=== PATIENT | female | born 1970 | race African-American/Black ===

== ENCOUNTER → 2016-06-23 | Outpatient (CLI) | payer MEDICAID ==
[~2016-06-23] MED LIST: ALBUTEROL200 PUFFS/ IH; AMOXICILLIN 50500 MG PO; AMOXIL500 MG PO; ATORVASTATIN CA10 M1 PO; AUGMENTIN XR 101 TER PO; BACTRIM DS 8001 TA1 PO; BENTYL20 MG OR; BIAXIN 500MG T500 MG PO; CHEWABLE ASPIRI81 MG PO; CIPRO 500MG TA500 MG PO; CIPROFLOXACIN 0.3% OP; DARVOCET-N 1001 EACH PO; DICLOFENAC 50MG50 MG PO; DIFLUCAN150 MG PO; EC NAPROSYN500 MG PO; FIORICET 325 MG1 TAB PO; FLAGYL500 MG PO; FLEXERIL10 M1 PO; FLEXERIL10 MG PO; HYDROCHLOROTHIA25 M1 OR; HYDROCHLOROTHIA25 M1 PO; HYDROCODONE1 TABLET PO; IBU800 M1 PO; IMODIUM A-1 MG/7.5 M PO; KETOROLAC10 MG PO; LASIX 20MG. TAB20 MG; LORTAB 5/500 501 TAB PO; MEDROL 4MG. DOSE4 MG PO; MELOXICAM15 MG PO; METHOCARBAMOL500 MG; METHOCARBAMOL750 MG PO; MUCINEX D 12001 TER PO; NAPROSYN 500MG500 MG PO; NAPROXEN EC500 MG PO; PERCODAN TABLE1 EACH PO; PHENERGAN 25MG.25 M1 PO; PREDNISONE 20MG20 MG PO; PROPRANOLOL HCL40 MG OR; PROPRANOLOL HCL40 MG PO; SULFAMETHOXAZOL1 TA6 PO; TESSALON PERLE100 MG PO; THIORIDAZINE HC50 MG OR; TRAMADOL 50MG T50 M1 PO; TRAMADOL 50MG T50 MG PO; ULTRACET 325 MG1 TAB PO; ULTRAM 50 MG TA50 MG PO; VERAPAMIL HYDR120 MG PO; VIBRAMYCIN 100100 MG PO; VICODIN 5/500 T1 TAB PO; VOLTAREN75 M1 PO; VOLTAREN75 MG PO; ZOFRAN ODT4 MG PO; ZOLPIDEM 10MG T10 MG PO
--- NOTE | 2016-06-29 05:44 | RADIOLOGY REPORT PS360 ---
MRI-LOW EXT ANY JOINT W/O-RT HISTORY: . OCD LESION, STRESS FX Pain and swelling medial and lateral. Previous surgery ORDERING PHYSICIAN: KENY Whitmore PATIENT AGE: 45 years COMPARISON: 12/03/2014 MRI TECHNIQUE: Standard multiplanar multiecho sequences are performed without contrast. FINDINGS: There remains 3 Areas of abnormal bone signal intensity as previously described. There is diffuse subcutaneous edema about the ankle joint both medial and lateral The most prominent region is along the medial aspect of the distal tibia at the base of the medial malleolus and medial aspect of the distal tibia as well as the subarticular region of the distal tibia at the ankle joint. This area measures 2 x 1.9 cm. Somewhat heterogeneous in nature. An 8 mm more focal area of decreased T1 and increased T2 signal present along the lateral margin of this region in the subarticular area of the ankle joint. This was present previously. The bone marrow edema is more prominent along the medial malleolus are area. The focal abnormality is not significantly changed. Osteochondritis dissecans with subchondral cystic changes and bone marrow edema considered. There remains a small area of osteochondrosis involving the lateral aspect of the talar dome measuring approximately 6 mm previously measuring 8 x 8 mm. This is hypointense on T1 and hyperintense on T2 with some minimal subcortical cystic change. The previously noted altered signal intensity within the navicular is only barely perceptible at this time.. No obvious fracture or dislocation. The ligaments and tendons about the ankle joint appear intact. No acute fractures evident. IMPRESSION: 1. There remains 3 Areas of altered bone marrow signal intensity consistent with osteochondrosis dissecans as detailed above within the medial malleoli region, talar dome laterally, and then the navicular. The areas within the navicular and talar dome have somewhat improved. The bone marrow edema has increased in the distal tibia medially at the base of the medial malleolus. The subcortical cystic changes at this region appear basically stable. 2. Bilateral subcutaneous edema
== END ==
LOC: RAD 14:30
DX: M93.979 Osteochondropathy, unspecified, unspecified ankle and foot (principal); M84.373A Stress fracture, unspecified ankle, initial encounter for fracture

== ENCOUNTER 2017-02-04 06:57 | Day surgery (SDC) | payer MEDICAID ==
[~2017-02-04] VITALS: Ht 170.2 cm; Wt 104.3 kg
[~2017-02-04 06:57] MED LIST changes: +IBUPROFEN800 MG
--- NOTE | 2017-02-04 07:49 | Operative Note ---
Surgeon/Diagnoses Surgeon/Housecleaner(s) Date of procedure: 02/04/17 Surgeon: MD Mariajose Bo Diagnoses Pre-op diagnosis: Epigastric pain Gastroesophageal reflux Post-op diagnosis Same as preoperative diagnoses, with the addition of the following: Gastritis Antral ulcerations Procedure Procedure Procedure: Esophagogastroduodenoscopy with biopsy Indications: JOSE MEADOWS is a 46 year-old Female with a history of epigastric pain and gastroesophageal reflux. Findings: Gastroesophageal junction at 36 cm Mild to moderate patchy gastritis 3 small shallow antral ulcerations Procedure Description: After informed consent was obtained, the patient was taken to the endoscopy suite. IV sedation ensued; however, appropriate sedation could not be accomplished and the anesthesia service was consulted. After appropriate monitored anesthesia care, the gastroscope was advanced. The gastroesophageal junction was at 36 cm. The stomach was entered. Patchy gastritis was noted. Shallow small antral ulcerations (3) were encountered. Biopsies were obtained. Retroflexion revealed no significant abnormality, but relaxation of the cardia was not complete leading to some visualization difficulties with regard to possible herniation. The pylorus was intubated. The duodenal mucosa appeared relatively normal. The gastroscope was carefully removed and the patient was transferred to recovery. EBL (ml): 1 Anesthesia: IV sedation with 5 mg of Versed and 100 g of fentanyl followed by monitored anesthesia care Complications: No immediate Specimens: Antral ulceration Disposition Disposition: Stable to recovery from where she will be discharged home. She will follow-up in one week. She will begin Carafate and Protonix. at [id number]
[2017-02-04 08:59] VITALS: BP 126/74
== END 2017-02-04 08:20 | disposition home or self-care (01) ==
LOC: SDC 06:57
PROVIDERS: Surgery
PROC: 0DB78ZX Excision of Stomach, Pylorus, Via Natural or Artificial Opening Endoscopic, Diagnostic (ICD-10-PCS; principal; 2017-02-04 10:30)
DX: K21.9 Gastro-esophageal reflux disease without esophagitis (principal); K29.70 Gastritis, unspecified, without bleeding; K25.9 Gastric ulcer, unspecified as acute or chronic, without hemorrhage or perforation; R10.13 Epigastric pain